=== PATIENT | female | born 1990 | race Caucasian/White ===

== ENCOUNTER → 2017-12-15 10:37 | Outpatient (CLI) | payer OTHER, MEDICAID, SELFPAY ==
--- NOTE | 2017-12-15 10:39 | DI.US.S_ITS ---
ULTRASOUND OF LEFT BREAST: 12/15/2017 CLINICAL: Focal left breast pain x 1 year. No prior exams were available for comparison. Color flow ultrasound of the left breast was performed on the areas of interest. Moore scale images of the real-time examination were reviewed. There is a 0.4 cm x 0.4 cm x 0.3 cm cluster of microcysts in the left breast at 3 o'clock posterior depth. This cluster of microcysts displays posterior acoustic enhancement. IMPRESSION: PROBABLY BENIGN - FOLLOW-UP RECOMMENDED The 0.4 cm x 0.4 cm x 0.3 cm cluster of microcysts in the left breast is probably benign. A follow-up ultrasound in 6 months is recommended to demonstrate stability. Electronically Signed By: Brenna stewart/:12/15/2017 11:27:01 letter sent: Followup Recommended Ultrasound BI-RADS: 3 Probably benign
== END ==
PROVIDERS: PCP Physician Assistant; Visit Provider Nurse Practitioner Family
DX: R92.8 Other abnormal and inconclusive findings on diagnostic imaging of breast (principal); N60.02 Solitary cyst of left breast; N64.4 Mastodynia; G89.29 Other chronic pain
CPT/HCPCS: 76642

== ENCOUNTER → 2018-06-16 11:10 | Outpatient (CLI) | payer OTHER, MEDICAID, SELFPAY ==
--- NOTE | 2018-06-16 | DI.US.S_ITS ---
LIMITED ULTRASOUND OF LEFT BREAST AND AXILLA: 06/16/2018 CLINICAL: 6 month follow-up of cysts. Comparison is made to exam dated: 12/15/2017 [facility]. Real-time and Doppler ultrasound of the left breast 3 o'clock, and axilla regions were performed. Moore scale images of the real-time examination were reviewed. There is a 0.4 x 0.3 x 0.3 cm oval circumscribed hypoechoic probable cluster of microcysts with increased through transmission/posterior acoustic enhancement, low-level internal echogenic foci, and no vascularity on Doppler ultrasound located in the left breast at 3 o'clock 12 cm from the nipple. This is not signfiicantly changed in appearance from comparison exam of 12/15/2017. Targeted ultrasound of the left axilla demonstrates morphologically normal lymph nodes with no abnormal cortical thickening. IMPRESSION: PROBABLY BENIGN Stable 0.4 cm probable cluster of microcysts in the left breast at 3 o'clock 12 cm from the nipple is probably benign. A follow-up targeted diagnostic ultrasound in 6 months is recommended to demonstrate stability. This exam was interpreted at Station ID: [id number]. Electronically Signed By: Slava Aleman M.D. ecl/:06/16/2018 13:12:37 letter sent: Followup Recommended Ultrasound BI-RADS: 3 Probably benign
== END ==
PROVIDERS: PCP Naturopath; Visit Provider Naturopath
DX: Z12.31 Encounter for screening mammogram for malignant neoplasm of breast (principal)
CPT/HCPCS: 76642

== ENCOUNTER 2018-07-02 07:36 | Day surgery (SDC) | payer OTHER, MEDICAID, SELFPAY ==
[2018-06-28 17:06] VITALS: BMI 47.0
[2018-07-02] VITALS (8 sets, daily range): BP systolic 120–146; BP diastolic 84–96; PULSE 84–96; RESP 16–18; TEMP 35.9–37; O2SAT 92–97; BMI 47.0
[2018-07-02] MEDS: LACTATED RINGERS 1,000 ML 100 ML IV (08:12)
--- NOTE | 2018-07-02 08:36 | PM.PREOP ---
Pre-operative Note Interval Note History & Physical reviewed/Exam performed by Physician: Yes Changes to H&P: No H&P completed within 30 days and has changed as indicated here:: See outpatient note 06/24/2018
--- NOTE | 2018-07-02 08:58 | SUR.OPER ---
Lithotomy on padded OR bed, head on pillow, arms secured on padded arm boards at <90 degrees abduction. Legs secured in padded yellow fins stirrups.
--- NOTE | 2018-07-02 09:09 | PM.OP.1 ---
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) Post-op diagnosis: same Procedure & Clinicians Procedure: Vaginal colposcopy with Cauterization dysplastic areas Same procedure as scheduled: Yes Indications: High-grade vaginal dysplasia by colpo directed biopsies Surgeon: Angely Baker Click Yes if Unassisted: Yes Anesthesia Type: General Operative Notes Findings: Two areas on the left vaginal sidewall and 2 areas on the right vaginal sidewall in the upper 3rd of the vagina that had white epithelium with punctation Closure Type: not applicable Specimen(s): none sent Estimated Blood Loss (mL): 0 Blood products transfused: none Procedure in detail: Patient was brought to the operating room where she underwent general anesthesia. She was placed in low Yellofin stirrups. A check system was reviewed with the staff in the room. The vagina was treated with ascetic acid. Colposcopy of the entire vagina was performed. The 4 areas of white epithelium with punctation were cauterized with the Bovie set at 60 w. There was no bleeding. Counts of instruments and sponges were correct. Patient went to recovery room in good condition. Complications: none Condition: stable Disposition: same day surgery Plan for aftercare: Patient will follow up vaginal colposcopy in 6 months
[2018-07-02] MEDS: KETOROLAC 30 MG/ML VIAL IV (09:19)
[2018-07-02] MEDS: HYDROCODONE/ACET 5/325 TABLET 1 TAB PO (09:26)
[2018-07-02] MEDS: fentaNYL 100 MCG/2 ML INJ 50 MCG IV (09:30)
== END 2018-07-02 10:33 | disposition home or self-care (01) ==
PROVIDERS: PCP Naturopath; Visit Provider Specialist
PROC: 0UBC7ZZ Excision of Cervix, Via Natural or Artificial Opening (ICD-10-PCS; CPT 57522; principal; 2018-07-02 08:45)
DX: N89.1 Moderate vaginal dysplasia (principal); D64.9 Anemia, unspecified; F41.9 Anxiety disorder, unspecified; I10 Essential (primary) hypertension; G47.33 Obstructive sleep apnea (adult) (pediatric)
CPT/HCPCS: 57420; J1100; J1885; J2405; J2704; J3010

== ENCOUNTER → 2018-11-29 16:05 | Outpatient (CLI) | payer OTHER, MEDICAID, SELFPAY ==
--- NOTE | 2018-11-29 | DI.US.S_ITS ---
ULTRASOUND OF LEFT BREAST: 11/29/2018 CLINICAL: Patient returns for a 6 month follow up of the left breast. Comparison is made to exams dated: 06/16/2018 ultrasound and 12/15/2017 [facility]. Color flow and real-time ultrasound of the left breast were performed. Moore scale images of the real-time examination were reviewed. There is a 0.4 cm x 0.4 cm x 0.3 cm cluster of micro cysts in the left breast at 3 o'clock posterior depth. This cluster of micro cysts displays posterior acoustic enhancement. These abnormalities are not significantly changed and has remained stable for one year. No new worrisome findings are noted in the imaged left breast. IMPRESSION: PROBABLY BENIGN The 0.4 cm x 0.4 cm x 0.3 cm cluster of micro cysts in the left breast is probably benign and has remained stable for one years time. A follow-up left ultrasound in 12 months is recommended to document 2 years of stability. This exam was interpreted at Station ID: [id number]. Electronically Signed By: Obie Samuel M.D. at/:11/29/2018 16:57:16 letter sent: Followup Recommended Ultrasound BI-RADS: 3 Probably benign
== END ==
PROVIDERS: PCP Naturopath; Visit Provider Naturopath
DX: N60.02 Solitary cyst of left breast (principal)
CPT/HCPCS: 76642

== ENCOUNTER → 2020-02-20 09:38 | Outpatient (CLI) | payer OTHER, MEDICAID, SELFPAY ==
--- NOTE | 2020-02-20 09:41 | DI.US.S_ITS ---
Patient Name: JEFF JEWELL date: 1990 Sex: F Attending Physician: Jeanette Indications: Date: 02/20/2020 12:06 At the request of: LINDA HAMILTON Procedure: US breast LT limited LIMITED ULTRASOUND OF LEFT BREAST AND AXILLA: 02/20/2020 CLINICAL: 6 month follow-up of cyst. Comparison is made to exams dated: 11/29/2018 ultrasound, 06/16/2018 ultrasound, and 12/15/2017 ultrasound - [facility]. Ultrasound of the left breast 3 o'clock, and axilla regions was performed. Moore scale images of the realtime examination were reviewed. There is a benign 0.2 cm x 0.2 cm x 0.2 cm cyst in the left breast at 3 o'clock posterior depth. This abnormality is decreased in size. Color flow imaging demonstrates that there is no vascularity present. No significant abnormalities were seen sonographically in the left axilla. IMPRESSION: BENIGN There is no sonographic evidence of malignancy. The 0.2 cm x 0.2 cm x 0.2 cm cyst in the left breast is benign. Beginning annual screening mammography at age 40 is recommended. Findings and recommendations were conveyed to the patient at time of exam. This exam was interpreted at Station ID: [id number]. Electronically Signed By: Annabelle lorenzana/:02/20/2020 12:14:33 letter sent: Normal Exam Ultrasound BI-RADS: 2 Benign
--- NOTE | 2020-02-20 11:17 | DI.US.S_ITS ---
Patient Name: COSTA ARREGUIN date: 05/22/1948 Sex: F Attending Physician: Nikolas Indications: Date: 02/20/2020 11:28 At the request of: MAICOL FULLER Procedure: US axillary only ULTRASOUND OF RIGHT AXILLA: 02/20/2020 CLINICAL: Follow-up of an abnormal MRI. Comparison is made to exams dated: 02/15/2020 breast MRI - [facility], 01/26/2020 mammogram, and 01/26/2020 ultrasound biopsy - [facility]. Ultrasound of the right axilla was performed. There is a vague 2.9 cm x 1.2 cm x 2 cm oval enlarged lymph node with uniform cortical thickening up to 4 mm with an indistinct margin deep in the axillary fat within the right axillary tail. This oval enlarged lymph node is heterogeneously echogenic with fatty hilum. IMPRESSION: SUSPICIOUS OF MALIGNANCY There is a 2.9 cm indistinct enlarged lymph node which may correspond to the node indicated on the MRI. In the setting of biopsy-proven right breast cancer, this node is suspicious of malignancy. Given its indistinct margins and deep position, this is not ammenable to ultrasound guided biopsy. A surgical oncologic consultation is recommended. Findings and recommendations were conveyed to the patient at time of exam. This exam was interpreted at Station ID: [id number]. Electronically Signed By: Annabelle lorenzana/:02/20/2020 15:05:47 Ultrasound BI-RADS: 4 Suspicious for malignancy
== END ==
PROVIDERS: PCP Naturopath; Referring Provider Naturopath; Visit Provider Naturopath
DX: R92.8 Other abnormal and inconclusive findings on diagnostic imaging of breast (principal); N60.02 Solitary cyst of left breast
CPT/HCPCS: 76642